=== PATIENT | female | born 1995 | race Caucasian/White ===

== ENCOUNTER 2018-04-01 21:27 | Emergency (ER) | payer OTHER ==
[~2018-04-01] VITALS: Ht 175.3 cm; Wt 90.4 kg
[2018-04-01] MEDS ORDERED: RECTASMOOTHE30 GM TP (22:16)
[2018-04-01 22:38] VITALS: BP 136/78
== END 2018-04-01 22:44 | disposition home or self-care (01) ==
LOC: EME 21:27 → RME 21:27
DX: O22.43 Hemorrhoids in pregnancy, third trimester (principal); Z3A.30 30 weeks gestation of pregnancy
CPT/HCPCS: 99281; 99283

== ENCOUNTER 2018-05-14 04:24 | Outpatient (CLI) | payer OTHER ==
[~2018-05-14 04:24] MED LIST: RECTASMOOTHE30 GM TP
[2018-05-14 04:28] VITALS: BP 119/79
[2018-05-14] MEDS ORDERED: PRENATAL TABLE1 EAC3 PO (06:11)
[2018-05-14] MEDS ORDERED: IRON325 M1 PO (06:12)
[2018-05-14] MEDS ORDERED: PROAIR HFA8.5 GM IH (06:13)
[2018-05-14 06:27] LABS: SOURCE URINE
[2018-05-15 12:41] LABS: CHLAMYDIA TRACHOMATIS NEGATIVE; NEISSERIA GONORRHOEAE NEGATIVE
== END 2018-05-14 06:30 | disposition home or self-care (01) ==
LOC: LDRP-OP 04:24 → 2WEST 04:25 → LDRP-OP 07-14 13:23
PROVIDERS: Nurse Practitioner
DX: O26.893 Other specified pregnancy related conditions, third trimester (principal); Z3A.35 35 weeks gestation of pregnancy; R11.0 Nausea; Z87.891 Personal history of nicotine dependence
CPT/HCPCS: 59025; 87086; 87491; 87591; G0378